=== PATIENT | female | born 1990 | race Caucasian/White ===

== ENCOUNTER 2022-03-16 04:37 | Emergency (ER) | payer SELFPAY ==
[~2022-03-16] VITALS: Ht 165.1 cm; Wt 72.3 kg
[2022-03-16] MEDS ORDERED: MAGNESIUM/ALUMINUM HYDROXIDE/SIMETHICONE 30ML UDC PO STA (06:39)
[2022-03-16] MEDS ORDERED: VISCOUS LIDOCAINE 2% 15 ML UDC PO STA (06:39)
[2022-03-16] MEDS ORDERED: FAMOTIDINE 20MG/2ML VIAL IV STA (06:39)
[2022-03-16] MEDS ORDERED: SODIUM CHLORIDE 0.9% 1,000 ML IV ONE (06:45)
[2022-03-16] MEDS ORDERED: ONDANSETRON HCL 4MG/2ML INJ IV ONE (07:00)
[2022-03-16 07:15] LABS: HEMATOCRIT. 44.9 % (36.0-48.0); HEMOGLOBIN. 15.3 g/dL (12.0-16.0); MEAN CORPUSCULAR HEMOGLOBIN 29.3 pg (28.0-32.0); MEAN PLATELET VOLUME 8.4 fl (7.4-10.4); PLATELET 241 x1000/uL (130-400); RED BLOOD CELL COUNT 5.22 mill/uL (4.2-5.4); RED CELL DISTRIBUTION WIDTH 13.4 % (11.6-14.6)
[2022-03-16 07:21] LABS: CHLORIDE 106 mEq/L (98-107)
[2022-03-16 07:22] LABS: HCG SCREEN NEGATIVE
[2022-03-16] MEDS ORDERED: ONDA4TAB50 MT (07:40)
[2022-03-16] MEDS ORDERED: ONDANSETRON 4MG ODT PO ONE (07:45)
[2022-03-16 07:55] VITALS: BP 106/75
[2022-03-16 09:48] LABS: PLATELET ESTIMATE NORMAL
== END 2022-03-16 07:57 | disposition home or self-care (01) ==
LOC: ER 04:37
DX: K29.70 Gastritis, unspecified, without bleeding (principal); R11.2 Nausea with vomiting, unspecified
CPT/HCPCS: 36415; 80053; 83690; 84703; 85025; 93005; 96361; 96374; 96375; 99284; J2405; J3490; J7030; Q0162